=== PATIENT | female | born 1995 | race Caucasian/White ===

== ENCOUNTER 2021-06-29 11:19 | Emergency (ER) | payer OTHER, SELFPAY ==
[2021-06-29 11:31] VITALS: BP 109/77; PULSE 89; RESP 18; TEMP 36.5; O2SAT 100
--- NOTE | 2021-06-29 11:52 | ED.URI ---
HPI - URI/Sore Throat General Chief Complaint: Upper Respiratory Infection Stated Complaint: sorethroat Source: patient Mode of arrival: ambulatory Limitations: no limitations History of Present Illness HPI Narrative: 25-year-old female presents to [facility] with complaints of sore throat for the past 2 days. Patient has been taking [id number] DayQuil with minimal relief. Patient denies fever, bodies, chills, nausea, vomiting, diarrhea, cough, runny nose or nasal congestion. Patient denies sick contacts. Patient is non-smoker. Patient denies recent travel. MD elicited complaint: sore throat Able to tolerate fluids by mouth: Yes Exacerbating factors: swallowing Associated symptoms: denies other symptoms Treatments prior to arrival: cold medicine Related Data Home Medications Medication Instructions Recorded Confirmed Mirena 06/29/21 flash glucose sensor [FreeStyle 06/29/21 06/29/21 Dru 2 Sensor] insulin degludec [Tresiba SUBCUT 06/29/21 FlexTouch U-100] insulin lispro [Humalog U-100 06/29/21 Insulin] insulin pump cart,cont inf,BT 06/29/21 06/29/21 [Omnipod Dash Pod (Gen 4)] liraglutide [Victoza 3-Laz] mg SUBCUT 06/29/21 pen needle, diabetic [BD 06/29/21 06/29/21 Ultra-Fine Short Pen Needle] Allergies Allergy/AdvReac Type Severity Reaction Status Date / Time gluten AdvReac Gastrointestinal Verified 06/29/21 11:40 Upset Review of Systems Constitutional: Constitutional: Denies chills, Denies fever(s) and Denies weakness ENT: Denies dizziness, Denies epistaxis, Denies nasal congestion and Reports sore throat Cardiovascular: Cardiovascular: Denies chest pain and Denies rapid heart rate Respiratory: Respiratory: Denies cough, Denies dyspnea and Denies wheezing Gastrointestinal: Gastrointestinal: Denies diarrhea, Denies nausea and Denies vomiting Integumentary/Breasts: Skin/Breast: Denies rash Endocrine: Endocrine: Denies fatigue PMF Family History Family History Other Family history of thyroid disease Social History Social History Smoking status: Never smoker Alcohol intake: never Comments At time of signature, I agree with nursing past medical, surgical, social and family history. There is no relevant family history pertinent to the presenting complaint. Exam Const: General: no acute distress Nutritional Appearance: well nourished Orientation/consciousness: patient oriented x3 HENMT: Head: normal to inspection Ears: external ears normal and TM's normal bilaterally General nose exam: Normal external nose present Face and sinus: normal facial exam Mouth: Yes lip normal and Yes moist mucous membranes Teeth and gingiva: dentition normal Throat: posterior oropharynx normal and uvula midline Other: Mild erythema noted to posterior pharynx. There is no swelling or exudate noted to bilateral tonsils Neck: Neck: normal visual inspection Resp: Effort & Inspection: normal respiratory effort, not labored and not tachypneic Auscultation: clear to auscultation bilaterally Cardio: Rate: regular rate Rhythm: regular rhythm Skin: General skin exam: normal color Rashes: no rashes Neuro: General: patient oriented x3 and moves all extremities Psych: Mental Status: mental status grossly normal Affect: normal affect Attitude: cooperative Course Course Level of Care: Express Care Visit Vital Signs Vital signs: Vital Signs Temperature 36.5 C 06/29/21 11:31 Pulse Rate 89 06/29/21 11:31 Respiratory Rate 18 06/29/21 11:31 Blood Pressure 109/77 06/29/21 11:31 Pulse Oximetry 100 06/29/21 11:31 Temperature 36.5 C 06/29/21 11:31 Pulse Rate 89 06/29/21 11:31 Respiratory Rate 18 06/29/21 11:31 Blood Pressure 109/77 06/29/21 11:31 Pulse Oximetry 100 06/29/21 11:31 MDM - URI/Sore Throat MDM Narrative [facility]
== END 2021-06-29 12:01 | disposition home or self-care (01) ==
PROVIDERS: Emergency Provider Nurse Practitioner Family
DX: J02.9 Acute pharyngitis, unspecified (principal); E10.65 Type 1 diabetes mellitus with hyperglycemia; E03.9 Hypothyroidism, unspecified; Z79.4 Long term (current) use of insulin
CPT/HCPCS: 87081; 87880; 99213; G0463

== ENCOUNTER 2021-07-13 13:04 | Emergency (ER) | payer OTHER, SELFPAY ==
--- NOTE | 2021-07-13 13:10 | ED.FEVER ---
HPI - Fever General Chief Complaint: Fever Stated Complaint: fever Time Seen by Provider: 07/13/21 13:10 Source: patient Mode of arrival: ambulatory Limitations: no limitations History of Present Illness HPI Narrative: 25-year-old female with history of diabetes and hypothyroid presents with complaint of nasal congestion, sinus pressure for 2 weeks. Reports last night she began having headaches and fever 102 Fahrenheit. Has been taking Advil to treat fever. Denies nausea vomiting diarrhea. Was taking Claritin but stopped few days ago. No other symptoms. All systems reviewed and negative except as noted above. Related Data Home Medications Medication Instructions Recorded Confirmed flash glucose sensor [FreeStyle 06/29/21 06/29/21 Dru 2 Sensor] insulin degludec [Tresiba SUBCUT 06/29/21 FlexTouch U-100] insulin lispro [Humalog U-100 1 sliding scale dose DIRECTED 06/29/21 07/13/21 Insulin] insulin pump cart,cont inf,BT 06/29/21 06/29/21 [Omnipod Dash Pod (Gen 4)] liraglutide [Victoza 3-Laz] 0.6 mg SUBCUT DIRECTED 06/29/21 07/13/21 pen needle, diabetic [BD 06/29/21 06/29/21 Ultra-Fine Short Pen Needle] levonorgestrel [Mirena] 1 device INTRAUTERINE ONCE 07/13/21 07/13/21 Allergies Allergy/AdvReac Type Severity Reaction Status Date / Time gluten AdvReac Gastrointestinal Verified 07/13/21 13:20 Upset Review of Systems Review of Systems: CONSTITUTIONAL: Reports fever, chills, or sweats. EYES: Denies visual changes, redness, or discharge. ENT: Reports rhinorrhea, congestion. Denies sore throat, or otalgia. CARDIOVASCULAR: Denies chest pain, palpitations, or edema. RESPIRATORY: Denies cough or dyspnea. GASTROINTESTINAL: Denies abdominal pain, nausea, vomiting, or diarrhea. GENITOURINARY: Denies dysuria or hematuria. SKIN: Denies rash or itching. MUSCULOSKELETAL: Denies back pain, joint pain, or myalgia. NEUROLOGIC: Denies headache, numbness, or weakness. PSYCHIATRIC: Denies anxiety or depression. All other systems reviewed are negative, except as documented in HPI. [facility] Family History Family History Other Family history of thyroid disease Social History Social History Smoking status: Never smoker Alcohol intake: never Comments At time of signature, agree with nursing past medical, surgical, social and family history. There is no relevant family history pertinent to the presenting complaint. Exam Narrative: GENERAL: This is a well-nourished, well-developed patient, in no apparent distress. HEAD: normocephalic, atraumatic. EYES: PERRL. Sclera clear/white. Vision is grossly intact. EARS: External ears normal, auditory canals clear and without drainage, TMs normal without perforation. Hearing grossly intact. NOSE: External nose normal with clear nasal drainage, moderate congestion, erythema and swelling to nares. No sinus tenderness. THROAT: Mucous membranes moist, posterior pharynx clear. NECK: Neck supple, non-tender without lymphadenopathy, masses or thyromegaly. CARDIOVASCULAR: Regular rate and rhythm without murmurs, gallops, or rubs. RESPIRATORY: Clear to auscultation. Breath sounds equal bilaterally. No wheezes, rales, or rhonchi. SKIN: warm, Dry, intact with no suspicious lesions or rash, good texture and turgor. NEURO: awake, alert, and oriented to person, place and time. There were no obvious focal neurologic abnormalities. EXTREMITIES: Normal range of motion to all extremities. Course Course Level of Care: Express Care Visit Vital Signs Vital signs: Reviewed MDM - Fever MDM Narrative Medical decision making narrative: Negative influenza and COVID test. We will treat patient with antibiotic for bacterial sinus infection due to duration of symptoms. Patient is aware of diagnosis, understands and agrees to treatment plan. Anticipatory guidance given.
[2021-07-13 13:12] VITALS: BP 116/82; PULSE 98; RESP 18; TEMP 37.1; O2SAT 100
== END 2021-07-13 13:43 | disposition home or self-care (01) ==
PROVIDERS: Emergency Provider Nurse Practitioner Family
DX: J01.90 Acute sinusitis, unspecified (principal); Z20.822 Contact with and (suspected) exposure to COVID-19; E10.9 Type 1 diabetes mellitus without complications; E03.9 Hypothyroidism, unspecified; Z96.41 Presence of insulin pump (external) (internal)
CPT/HCPCS: 87426; 87804; 99213; C9803; G0463